=== PATIENT | female | born 1995 | race Caucasian/White ===

== ENCOUNTER 2023-10-07 10:17 | Emergency (ER) | payer SELFPAY ==
[~2023-10-07] VITALS: Ht 152.4 cm; Wt 89.8 kg
[2023-10-07 10:22] VITALS: BP_SYST 129; PULSE 84; RESP 20; TEMP 98.3; O2SAT 98
[2023-10-07 10:51] LABS: BASOPHILS # (AUTO) 0.1 K/uL (0.0-0.2); BASOPHILS % (AUTO) 0.6 % (0.0-2.0); EOSINOPHILS # (AUTO) 0.1 K/uL (0.0-0.4); EOSINOPHILS % (AUTO) 0.9 % (0.0-4.0); HEMATOCRIT 36.6 % (36-48); HEMOGLOBIN 12.8 g/dL (12.0-16.0); LYMPHOCYTES # (AUTO) 1.8 K/uL (1.0-5.5); LYMPHOCYTES % (AUTO) 18.5 % (20.5-51.5); MEAN CORPUSCULAR HEMOGLOBIN 29 pg (27-31); MEAN CORPUSCULAR HGB CONC 35 % (32-36); MEAN CORPUSCULAR VOLUME 82 fL (79.0-98.0); MONOCYTES # (AUTO) 0.7 K/uL (0.0-1.0); MONOCYTES % (AUTO) 6.8 % (1.7-9.3); NEUTROPHILS % (AUTO) 73.2 % (40.0-70.0); PLATELET COUNT (AUTO) 272 K/uL (130-430); RED BLOOD CELL COUNT(AUTO) 4.45 MIL/uL (4.2-6.2); RED CELL DISTRIBUTION WIDTH 13.8 % (9.0-15.0); WHITE BLOOD COUNT (AUTO) 9.6 K/uL (4.8-10.8)
[2023-10-07 11:04] LABS: BILIRUBIN,URINE NEGATIVE (NEGATIVE); BLOOD, URINE NEGATIVE (NEGATIVE); CLARITY/URINE CLEAR (CLEAR); COLOR,URINE YELLOW (YELLOW); GLUCOSE,URINE NEGATIVE (NEGATIVE); KETONES,URINE NEGATIVE (NEGATIVE); LEUKOCYTE ESTERASE ,URINE NEGATIVE (NEGATIVE); NITRITE, URINE NEGATIVE (NEGATIVE); PH,URINE 8.5 (5.0-8.0); PROTEIN URINE NEGATIVE (NEGATIVE)
[2023-10-07 11:18] LABS: PROTHROMBIN TIME 9.9 SECS (9.5-12.5)
[2023-10-07 12:25] VITALS: BP_SYST 129; PULSE 84; RESP 20; TEMP 98.3; O2SAT 98
== END 2023-10-07 12:25 | disposition home or self-care (01) ==
LOC: SED 10:17
DX: O20.9 Hemorrhage in early pregnancy, unspecified (principal); Z3A.01 Less than 8 weeks gestation of pregnancy
CPT/HCPCS: 36415; 76801; 76802; 81001; 81003; 81025; 84702; 85025; 85610; 85730; 86900; 86901; 99284

== ENCOUNTER 2023-10-09 10:26 | Emergency (ER) | payer SELFPAY ==
[~2023-10-09] VITALS: Ht 152.4 cm; Wt 90.7 kg
[2023-10-09 10:45] VITALS: BP_SYST 121; PULSE 75; RESP 18; TEMP 97.4; O2SAT 100
[2023-10-09 13:33] VITALS: BP_SYST 123; PULSE 76; RESP 18; TEMP 98; O2SAT 100
== END 2023-10-09 13:31 | disposition home or self-care (01) ==
LOC: SED 10:26
DX: O20.0 Threatened abortion (principal); Z3A.01 Less than 8 weeks gestation of pregnancy
CPT/HCPCS: 36415; 76801; 76817; 84702; 99284